=== PATIENT | female | born 1970 | race African-American/Black ===

== ENCOUNTER → 2020-06-12 | Day surgery (SDC) | payer OTHER, MEDICARE ==
[~2020-06-12] MED LIST: AMBIEN 5 MG TABL5 M1 PO; ASA81BEC PO; CARVEDILOL25 MG PO; HYDRALAZINE 5050 MG PO; LIPITOR40 MG PO; NITROGLYCERIN0.4 MG SUBLING; NORCO 5-325 TA1 EAC2 PO; NORVASC 2.5 MG2.5 M1 PO; POTASSIUM20 PO; RENAL-VITE TAB0.8 MG PO; RENVELA800 MG PO; ULTRAM 50MG TAB50 MG PO
[2020-06-12 11:23] LABS: HEMATOCRIT 32.4 % (37.0-47.0); HEMOGLOBIN 10.7 gm/dL (12.0-15.0); MCH 29.3 pg (26.0-34.0); MCV 88.8 fL (80.0-100.0); MPV 7.2 fl. (7.2-11.1); RBC 3.65 mil/uL (4.20-5.00); RDW-CV 17.4 % (10.5-14.5)
[2020-06-12 11:29] LABS: CALCIUM 9.3 mg/dL (8.5-10.1); CREATININE 4.2 mg/dL (0.6-1.3); POTASSIUM 3.8 mmol/L (3.5-5.1)
--- NOTE | 2020-06-12 14:35 | EKG ---
[place] [address] ELECTROCARDIOGRAM REPORT Name: LINDSEY MERRITT Room: [facility]#: [id number] Admission: 06/12/20 Attend Phys: Brent Kaur Discharge: Date of : 72 Date of Service: 06/12/20 1115 Report #: [id number] THIS REPORT FOR: //name// [facility] Test Date: 2020-06-12 Test Time: 11:15:04 Pat Name: LINDSEY MERRITT Department: Room: Gender: F [employer]visor [employer]: : 1970 Requested By: Brent Rubin Order Number: [id number] Reading MD: Phillip Rg Measurements Intervals [place] Rate: 74 P: 52 MI: 139 QRS: 34 QRSD: 94 T: 123 QT: 442 QTc: 491 Interpretive Statements Sinus rhythm Probable left atrial enlargement LVH with secondary repolarization abnormality Probable inferior infarct, recent Baseline wander in lead(s) V6 No previous ECG available for comparison Electronically Signed On 06-12-2020 14:35:13 CDT by Phillip Rg [email or web address] <ELECTRONICALLY SIGNED> By: Phillip Rg MD, FACC 06/12/20 1435 1115 1115 Phillip Rg MD, [facility] /EPI
--- NOTE | 2020-06-12 15:55 | OP ---
[facility] [address] [place] [address] OPERATIVE REPORT Name: LINDSEY MERRITT Room: [facility]#: [id number] Admission: 06/12/20 Attend Phys: Brent Rubin Discharge: Date of : 72 Report #: [id number] THIS REPORT FOR: //name// cc: Luis Enrique Wisdom Vincent DO ~ THIS REPORT FOR: //name// CC: Brent Wisdom DATE OF SERVICE: 06/12/2020 PREOPERATIVE DIAGNOSIS: End-stage renal disease. POSTOPERATIVE DIAGNOSIS: End-stage renal disease. PROCEDURE: Fistula placement, left upper extremity. SURGEON: Santi Villafuerte MD. LOST CHARGE CARD CLERK: Dr. Cruz, Resident year 4. COMPLICATIONS: None. ESTIMATED BLOOD LOSS: Minimal. ANESTHESIA: General. INDICATIONS FOR PROCEDURE: The patient is a very pleasant 49-year-old -[place] female, who has end-stage renal disease and is on dialysis. She has previously done peritoneal dialysis. She is no longer going to do peritoneal dialysis. Dr. Rubin removed her peritoneal dialysis catheter prior to my portion of the procedure. Please see his dictation for further details. Informed consent was obtained from the patient with risks including but not limited to bleeding, infection, need for further surgery, pain, , heart attack, stroke, steal syndrome. The patient understood these risks and was agreeable to proceed. DESCRIPTION OF PROCEDURE: The patient was taken to the OR and placed in supine position. General anesthesia was initiated. Dr. Rubin performed his procedure. Upon completion, the patient remained under anesthesia. We prepped and draped her left upper extremity. Timeout was performed for my portion of the procedure. I created a transverse incision at the antecubital fossa. Sharp and blunt dissections were carried down to the cephalic vein. It was noted to be of adequate caliber for fistula formation. Sharp [place] [address] OPERATIVE REPORT Name: LINDSEY MERRITT Room: [facility]#: [id number] Admission: 06/12/20 Attend Phys: Brent Rubin Discharge: Date of : 72 Report #: [id number] carried down to the brachial artery. This was controlled proximally and distally with vessel loops. I freed up the distal cephalic vein. There did not appear to be enough vein length to reach over onto the brachial artery. I thus created a counterincision on the forearm proximally approximately 1 cm in length. This was directly over the cephalic vein. Sharp and blunt dissections were carried down to the cephalic vein. I ligated distally with a 3-0 silk suture. I freed up the vein and transposed it over into the original incision. There was a branch point that I also ligated. Now, I had enough usable length to transpose over onto the brachial artery. I spatulated the free end of the vein by longitudinally incising the branch point. I then passed a 4 mm and 5 mm dilator up the vein, it passed quite easily. I created a longitudinal arteriotomy in the brachial artery after heparinizing the patient. I created end-to-side anastomosis using a running 6-0 Prolene suture. At the completion of anastomosis, there was adequate hemostasis and excellent blood flow into the fistulized vein with a palpable thrill running up the patient's arm. We irrigated the wound bed with antibiotic saline. We controlled bleeding as needed with electrocautery, ties, clips, and Sumaya. We closed the wound in multiple layers using 3-0 Vicryl and 4-0 Monocryl. Incisions were dressed with Dermabond. The patient was taken alert and awake to recovery room in good condition. All needle and instrument counts were correct at the end of the case. <ELECTRONICALLY SIGNED> By: Santi Villafuerte MD 06/12/20 1555 1400 [id number] Villafuerte MD /nt
--- NOTE | 2020-06-18 12:39 | OP ---
[facility] [address] [place] [address] OPERATIVE REPORT Name: LINDSEY MERRITT Room: [facility]#: [id number] Admission: 06/12/20 Attend Phys: Brent Rubin Discharge: Date of : 72 Report #: [id number] THIS REPORT FOR: //name// cc: Luis Enrique Wisdom Vincent DO ~ THIS REPORT FOR: //name// CC: Brent Wisdom DATE OF SERVICE: 06/12/2020 PREOPERATIVE DIAGNOSIS: End-stage renal disease. POSTOPERATIVE DIAGNOSIS: End-stage renal disease. PROCEDURE: Removal of tunneled intraperitoneal catheter. SURGEON: Brent Rubin MD ANESTHESIA: General. ESTIMATED BLOOD LOSS: Minimal. SPECIMEN: None. DESCRIPTION OF PROCEDURE: After informed consent was obtained, the patient was brought to the operating room and placed supine. SCDs were placed and working, preoperative antibiotics were administered, and general anesthesia was induced. The abdomen was prepped and draped in the usual sterile fashion. A 1 cm elliptical incision was made around the exit site. Cautery dissection was made around the catheter. The external cuff was released using cautery. I then made a counter incision over the internal cuff site. Cautery dissection was made down to the fascia. The catheter was freed up with cautery and it was removed easily. Skin was then closed with 4-0 Monocryl. Incisions were sealed with Dermabond. COMPLICATIONS: None. DISPOSITION: The patient was taken to recovery in satisfactory condition. <ELECTRONICALLY SIGNED> By: Brent Rubin MD 06/18/20 1239 1259 [id number] Rubin MD /nt
== END | disposition home or self-care (01) ==
LOC: M.SUR 08:07
PROVIDERS: ATTEND Surgery
DX: I12.0 Hypertensive chronic kidney disease with stage 5 chronic kidney disease or end stage renal disease (principal); N18.6 End stage renal disease; E78.5 Hyperlipidemia, unspecified; I25.10 Atherosclerotic heart disease of native coronary artery without angina pectoris; Z11.59 Encounter for screening for other viral diseases; Z98.890 Other specified postprocedural states; Z79.899 Other long term (current) drug therapy